=== PATIENT | female | born 1960 | race Caucasian/White ===

== ENCOUNTER → 2016-12-13 | Outpatient (CLI) | payer MEDICAID ==
[2016-12-13 18:54] LABS: Basophils # (A) 0.1 k/uL (0-0.2); Basophils % (A) 1 %; CH 26.8; CHCM 32.7; Eosinophils # (A) 0.5 k/uL (0-0.7); Eosinophils % (A) 6 %; HCT 40.7 % (34.0-46.0); HDW 2.64; HGB 13.4 gm/dL (11.4-16.0); Luc # (Auto) 0.15; Luc % (Auto) 2; Lymphocytes # (A) 2.9 k/uL (1.0-4.8); Lymphocytes % (A) 34 %; MCH 27.1 pg (25.0-35.0); MCV 82.3 fL (80.0-100.0); Mean Platelet Volume 8.1; Monocytes # (A) 0.5 k/uL (0-1.0); Monocytes % (A) 5 %; Neutrophils # (A) 4.5 k/uL (1.3-7.7); Neutrophils % (A) 53 %; RBC 4.94 m/uL (3.80-5.40); RDW 13.4 % (11.5-15.5); WBC 8.5 k/uL (3.8-10.6)
[2016-12-13 18:58] LABS: ALT 39 U/L (9-52); AST 29 U/L (14-36); Alkaline Phosphatase 126 U/L (38-126); Anion Gap 12 mmol/L; Blood Urea Nitrogen 15 mg/dL (7-17); Calcium 9.4 mg/dL (8.4-10.2); Carbon Dioxide 24 mmol/L (22-30); Chloride 107 mmol/L (98-107); Cholesterol 229 mg/dL (<200); Glucose 94 mg/dL (74-99); HDL Cholesterol 37 mg/dL (40-60); Non-African American GFR(MDRD) >60 (>60 ml/min/1.73 sqM); Potassium 4.1 mmol/L (3.5-5.1); Sodium 143 mmol/L (137-145); Total Bilirubin 0.3 mg/dL (0.2-1.3); Total Protein 6.5 g/dL (6.3-8.2); Triglycerides 426 mg/dL (<150)
[2016-12-13 22:54] LABS: Hemoglobin A1C 5.5 % (4.2-6.1)
[2016-12-15 12:42] LABS: HLA B27 POSITIVE; HLA B27 Comment SEEBELOW
== END ==
LOC: MMGSC 11:45
PROVIDERS: ATTEND Family Medicine
DX: Z00.00 Encounter for general adult medical examination without abnormal findings (principal); M54.5 Low back pain; E03.9 Hypothyroidism, unspecified; E66.9 Obesity, unspecified; Z85.850 Personal history of malignant neoplasm of thyroid
CPT/HCPCS: 36415; 80053; 80061; 82306; 83036; 83721; 84439; 84443; 85025; 86812

== ENCOUNTER → 2017-03-18 | Outpatient (CLI) | payer MEDICAID ==
--- NOTE | 2017-03-21 11:04 | PE ---
Nuclear medicine PET/CT HISTORY: Malignant neoplasm of thyroid gland, C 74, subsequent to treatment Patient has remote history of thyroidectomy, iodine-131 treatment Patient received 11.6 mCi F-18 FDG intravenously in delayed scanning was performed from the skull bas e to the mid thighs. Localization and attenuation correction CT scan was performed. No exams are avai lable for correlation. Neck and chest: There is no evident adenopathy. No suspicious hypermetabolic uptake. No evident lung mass. Patient is post thyroidectomy. Abdomen pelvis: No suspicious hypermetabolic uptake. No evident adenopathy or mass. Postop changes ar e noted at the gastroesophageal junction. Pancreas is fatty replaced. Osseous structures are within normal limits. Degenerative disc changes present in the visualized spin e. IMPRESSION: Postop changes. No suspicious hypermetabolic uptake.
== END | disposition home or self-care (01) ==
LOC: RADPETMAIN 08:15
PROVIDERS: ATTEND Family Medicine
DX: C73 Malignant neoplasm of thyroid gland (principal); Z98.890 Other specified postprocedural states
CPT/HCPCS: 78815; A9552

== ENCOUNTER → 2017-03-28 | Outpatient (CLI) | payer MEDICAID | END | disposition home or self-care (01) | LOC: MMGSC 11:04 | PROVIDERS: ATTEND Family Medicine | DX: E55.9 Vitamin D deficiency, unspecified (principal); Z85.850 Personal history of malignant neoplasm of thyroid | CPT/HCPCS: 82306; 84439; 84443 ==